=== PATIENT | male | born 1975 | race Caucasian/White ===

== ENCOUNTER 2016-10-16 16:04 | Emergency (ER) | payer BC ==
[~2016-10-16] VITALS: Ht 185.4 cm; Wt 81.6 kg
[~2016-10-16 16:04] MED LIST: AMOX-426 PO; IBUP-786 PO
--- NOTE | 2016-10-16 16:04 | NUR ---
Patient to ER bed 7 to gown for evaluation. Side rails up. Report given to David IBARRA.
[2016-10-16 16:05] VITALS: BP 120/69; PULSE 82; PULSE 83; RESP 17; TEMP 96.9; TEMP 98.3; O2SAT 96; O2SAT 97
--- NOTE | 2016-10-16 16:05 | NUR ---
Right eye irrigated at the eye station with water. Patient tolerated well.
--- NOTE | 2016-10-16 16:06 | NUR ---
Dr. Hadny at bedside to assess pt.
--- NOTE | 2016-10-16 16:06 | NUR ---
Pt here for foreign body in right eye. Redness to eye noted. Per pt, he was working on the car today, and felt something went in his eye. Pt states he feels uncomfortablenes, not pain.
[2016-10-16] MEDS ORDERED: TETRACAINE HCL 0.5% OPHTHALMIC DROPS 15 ML OP ONE (16:15)
[2016-10-16 16:55] VITALS: BP 118/70; PULSE 80; RESP 17; TEMP 97.1; O2SAT 98
--- NOTE | 2016-10-16 16:55 | NUR ---
Patient given written and verbal discharge instructions and verbalizes understanding. ER MD discussed with patient the results and treatment provided. Patient in stable condition. ID arm band removed. Rx of Gentamicin sulfate opthalmic solutiion given. Opportunity for questions provided and answered.
== END 2016-10-16 16:55 | disposition home or self-care (01) ==
LOC: SED 16:04
DX: T15.01XA Foreign body in cornea, right eye, initial encounter (principal); X58.XXXA Exposure to other specified factors, initial encounter; Y93.89 Activity, other specified; Y99.0 Civilian activity done for income or pay; Y92.89 Other specified places as the place of occurrence of the external cause
CPT/HCPCS: 99284

== ENCOUNTER 2021-03-06 20:35 | Emergency (ER) | payer BC, SELFPAY ==
[~2021-03-06] VITALS: Ht 185.4 cm; Wt 79.4 kg
[2021-03-06 20:40] VITALS: BP_SYST 103
== END 2021-03-06 22:10 | disposition left against medical advice (07) ==
LOC: SED 20:35
DX: M25.421 Effusion, right elbow (principal); Z53.21 Procedure and treatment not carried out due to patient leaving prior to being seen by health care provider

== ENCOUNTER 2021-03-28 08:39 | Inpatient (IN) | payer BC, SELFPAY ==
[~2021-03-28] VITALS: Ht 185.4 cm; Wt 81.6 kg
[2021-03-28 09:04] VITALS: BP_SYST 114
[2021-03-28] MEDS ORDERED: ACETAMINOPHEN 500 MG TABLET PO ONE (10:00)
[2021-03-28] MEDS ORDERED: NACL 0.9% 1,000 ML IV ONE (10:15)
[2021-03-28 10:39] LABS: BASOPHILS % (AUTO) 0.6 % (0.0-2.0); EOSINOPHILS % (AUTO) 0.1 % (0.0-4.0); HEMATOCRIT 38.7 % (36-54); HEMOGLOBIN 13.6 g/dL (14.0-18.0); LYMPHOCYTES # (AUTO) 0.6 K/uL (1.0-5.5); LYMPHOCYTES % (AUTO) 12.7 % (20.5-51.5); MEAN CORPUSCULAR HEMOGLOBIN 32 pg (27-31); MEAN CORPUSCULAR HGB CONC 35 % (32-36); MEAN CORPUSCULAR VOLUME 90 fL (79.0-98.0); MONOCYTES # (AUTO) 0.3 K/uL (0.0-1.0); MONOCYTES % (AUTO) 6.8 % (1.7-9.3); NEUTROPHILS # (AUTO) 3.8 K/uL (1.8-7.7); NEUTROPHILS % (AUTO) 79.8 % (40.0-70.0); PLATELET COUNT (AUTO) 96 K/uL (130-430); RED CELL DISTRIBUTION WIDTH 12.7 % (9.0-15.0); WHITE BLOOD COUNT (AUTO) 4.7 K/uL (4.8-10.8)
[2021-03-28 10:58] LABS: CALCIUM 8.3 mg/dL (8.4-11.0); CREATININE 1.13 mg/dL (0.55-1.30); POTASSIUM 4.6 mmol/L (3.5-5.1)
[2021-03-28 11:00] LABS: PROTHROMBIN TIME 10.4 SECS (9.5-12.5)
[2021-03-28 11:03] LABS: ALBUMIN 3.1 g/dL (3.4-4.8); C-REACTIVE PROTEIN QUANT 5.4 mg/dL (0-0.5); TOTAL BILIRUBIN 0.6 mg/dL (0.0-1.0)
[2021-03-28] MEDS ORDERED: CHOLECALCIFEROL (VITAMIN D3) 2,000 UNIT TABLET PO ONE (13:00)
[2021-03-28] MEDS ORDERED: MAGNESIUM OXIDE 400 MG TABLET PO ONE (13:00)
[2021-03-28] MEDS ORDERED: DECADRON 4 MG TABLET PO ONE (13:00)
[2021-03-28] MEDS ORDERED: ACETAMINOPHEN 325 MG TABLET PO PRN (14:00)
[2021-03-28] MEDS ORDERED: ONDANSETRON HCL 4 MG/2 ML VIAL IVP PRN (14:15)
[2021-03-28] MEDS ORDERED: ALBUTEROL MDI INHALATION 8 GM INH INH PRN (14:15)
[2021-03-28 14:16] VITALS: BP_SYST 114
[2021-03-28] MEDS: AZITHROMYCIN 500 MG in NS 250 ML IV SCH (14:59)
[2021-03-28 15:00] VITALS: BP_SYST 111
[2021-03-28] MEDS: NACL 0.9% 1,000 ML IV SCH (15:00)
[2021-03-28] MEDS: cefTRIAXone 1 GM in D5W 50 ML IV SCH (15:15)
[2021-03-28] MEDS: HEPARIN SODIUM,PORCINE 5,000 UNITS/ML VIAL SUBCUT SCH ×2 (15:18→22:20)
[2021-03-28] MEDS ORDERED: IVERMECTIN 3 MG TABLET PO ONE (17:45)
[2021-03-28 20:11] LABS: BILIRUBIN,URINE NEGATIVE (NEGATIVE); BLOOD, URINE NEGATIVE (NEGATIVE); CLARITY/URINE CLEAR (CLEAR); COLOR,URINE YELLOW (YELLOW); GLUCOSE,URINE NEGATIVE (NEGATIVE); KETONES,URINE TRACE (NEGATIVE); LEUKOCYTE ESTERASE ,URINE NEGATIVE (NEGATIVE); NITRITE, URINE NEGATIVE (NEGATIVE); PH,URINE 7.5 (5.0-8.0); PROTEIN URINE NEGATIVE (NEGATIVE); UROBILINOGEN,URINE 0.2 (0.2-1.0)
[2021-03-28 21:00] VITALS: BP_SYST 116
[2021-03-28] MEDS: ASCORBIC ACID 500 MG TABLET PO SCH (22:05)
[2021-03-28] MEDS: MAGNESIUM OXIDE 400 MG TABLET PO SCH (22:05)
[2021-03-28] MEDS: CHOLECALCIFEROL (VITAMIN D3) 2,000 UNIT TABLET PO SCH (22:05)
[2021-03-29] VITALS: BP_SYST 127
[2021-03-29] MEDS: NACL 0.9% 1,000 ML IV SCH ×3 (04:54→23:29)
[2021-03-29] MEDS: HEPARIN SODIUM,PORCINE 5,000 UNITS/ML VIAL SUBCUT SCH ×3 (06:16→23:32)
[2021-03-29] MEDS: BUDESONIDE 0.5 MG/2 ML AMPUL.NEB INH SCH (07:00)
[2021-03-29 07:05] LABS: BASOPHILS % (AUTO) 0.6 % (0.0-2.0); EOSINOPHILS % (AUTO) 0.1 % (0.0-4.0); HEMATOCRIT 37.8 % (36-54); HEMOGLOBIN 13.4 g/dL (14.0-18.0); LYMPHOCYTES # (AUTO) 0.8 K/uL (1.0-5.5); LYMPHOCYTES % (AUTO) 23.3 % (20.5-51.5); MEAN CORPUSCULAR HEMOGLOBIN 32 pg (27-31); MEAN CORPUSCULAR HGB CONC 36 % (32-36); MEAN CORPUSCULAR VOLUME 90 fL (79.0-98.0); MONOCYTES # (AUTO) 0.4 K/uL (0.0-1.0); MONOCYTES % (AUTO) 12.1 % (1.7-9.3); NEUTROPHILS # (AUTO) 2.3 K/uL (1.8-7.7); NEUTROPHILS % (AUTO) 63.9 % (40.0-70.0); PLATELET COUNT (AUTO) 112 K/uL (130-430); RED BLOOD CELL COUNT(AUTO) 4.22 MIL/uL (4.2-6.2); RED CELL DISTRIBUTION WIDTH 12.7 % (9.0-15.0); WHITE BLOOD COUNT (AUTO) 3.6 K/uL (4.8-10.8)
[2021-03-29 07:56] LABS: ALBUMIN 2.9 g/dL (3.4-4.8); CALCIUM 8.4 mg/dL (8.4-11.0); POTASSIUM 3.9 mmol/L (3.5-5.1); TOTAL BILIRUBIN 0.5 mg/dL (0.0-1.0)
[2021-03-29 08:00] VITALS: BP_SYST 116
[2021-03-29] MEDS: DECADRON 4 MG TABLET PO SCH (09:26)
[2021-03-29] MEDS: CHOLECALCIFEROL (VITAMIN D3) 2,000 UNIT TABLET PO SCH ×2 (09:27→23:35)
[2021-03-29] MEDS: MAGNESIUM OXIDE 400 MG TABLET PO SCH ×2 (09:27→23:36)
[2021-03-29] MEDS: ASCORBIC ACID 500 MG TABLET PO SCH ×2 (09:27→23:36)
[2021-03-29 12:05] VITALS: BP_SYST 112
[2021-03-29] MEDS ORDERED: DIPHENHYDRAMINE HCL 25 MG CAPSULE PO ONE (13:45)
[2021-03-29] MEDS: cefTRIAXone 1 GM in D5W 50 ML IV SCH (14:28)
[2021-03-29] MEDS: AZITHROMYCIN 500 MG in NS 250 ML IV SCH (14:28)
[2021-03-29 17:08] VITALS: BP_SYST 126
[2021-03-29] MEDS ORDERED: DIPHENHYDRAMINE HCL 25 MG CAPSULE PO PRN (20:00)
[2021-03-30] MEDS: HEPARIN SODIUM,PORCINE 5,000 UNITS/ML VIAL SUBCUT SCH ×3 (05:45→21:28)
[2021-03-30] MEDS: NACL 0.9% 1,000 ML IV SCH ×2 (05:47→16:19)
[2021-03-30] MEDS: BUDESONIDE 0.5 MG/2 ML AMPUL.NEB INH SCH ×2 (07:00→20:53)
[2021-03-30 08:00] VITALS: BP_SYST 113
[2021-03-30] MEDS: DECADRON 4 MG TABLET PO SCH (08:25)
[2021-03-30] MEDS: ASCORBIC ACID 500 MG TABLET PO SCH ×2 (08:25→21:25)
[2021-03-30] MEDS: CHOLECALCIFEROL (VITAMIN D3) 2,000 UNIT TABLET PO SCH ×2 (08:25→21:27)
[2021-03-30] MEDS: MAGNESIUM OXIDE 400 MG TABLET PO SCH ×2 (08:25→21:26)
[2021-03-30 12:00] VITALS: BP_SYST 114
[2021-03-30] MEDS: AZITHROMYCIN 500 MG in NS 250 ML IV SCH (13:43)
[2021-03-30 16:00] VITALS: BP_SYST 116
[2021-03-30] MEDS: cefTRIAXone 1 GM in D5W 50 ML IV SCH (16:19)
[2021-03-31 01:30] VITALS: BP_SYST 127
[2021-03-31] MEDS: NACL 0.9% 1,000 ML IV SCH ×2 (01:57→12:26)
[2021-03-31] MEDS: HEPARIN SODIUM,PORCINE 5,000 UNITS/ML VIAL SUBCUT SCH ×2 (05:27→13:47)
[2021-03-31 06:53] LABS: BASOPHILS % (AUTO) 0.6 % (0.0-2.0); EOSINOPHILS % (AUTO) 0.2 % (0.0-4.0); LYMPHOCYTES # (AUTO) 1.2 K/uL (1.0-5.5); LYMPHOCYTES % (AUTO) 23.4 % (20.5-51.5); MEAN CORPUSCULAR HEMOGLOBIN 32 pg (27-31); MEAN CORPUSCULAR HGB CONC 35 % (32-36); MEAN CORPUSCULAR VOLUME 90 fL (79.0-98.0); MONOCYTES # (AUTO) 0.7 K/uL (0.0-1.0); MONOCYTES % (AUTO) 12.8 % (1.7-9.3); NEUTROPHILS # (AUTO) 3.3 K/uL (1.8-7.7); PLATELET COUNT (AUTO) 133 K/uL (130-430); RED BLOOD CELL COUNT(AUTO) 4.13 MIL/uL (4.2-6.2); RED CELL DISTRIBUTION WIDTH 12.5 % (9.0-15.0); WHITE BLOOD COUNT (AUTO) 5.3 K/uL (4.8-10.8)
[2021-03-31] MEDS: DECADRON 4 MG TABLET PO SCH (08:08)
[2021-03-31] MEDS: ASCORBIC ACID 500 MG TABLET PO SCH (08:09)
[2021-03-31] MEDS: CHOLECALCIFEROL (VITAMIN D3) 2,000 UNIT TABLET PO SCH (08:09)
[2021-03-31] MEDS: MAGNESIUM OXIDE 400 MG TABLET PO SCH (08:09)
[2021-03-31 08:22] LABS: ALBUMIN 2.7 g/dL (3.4-4.8); C-REACTIVE PROTEIN QUANT 0.9 mg/dL (0-0.5); CALCIUM 8.1 mg/dL (8.4-11.0); CREATININE 0.95 mg/dL (0.55-1.30); TOTAL BILIRUBIN 0.6 mg/dL (0.0-1.0)
[2021-03-31 08:24] VITALS: BP_SYST 109
[2021-03-31] MEDS: BUDESONIDE 0.5 MG/2 ML AMPUL.NEB INH SCH (09:28)
[2021-03-31 12:14] VITALS: BP_SYST 117
[2021-03-31] MEDS: AZITHROMYCIN 500 MG in NS 250 ML IV SCH (13:46)
[2021-03-31] MEDS: cefTRIAXone 1 GM in D5W 50 ML IV SCH (15:11)
[2021-03-31 15:16] VITALS: BP_SYST 115
[2021-03-31] MEDS ORDERED: APIX2.5T PO (15:25)
[2021-03-31] MEDS ORDERED: ASCO500T20 PO (15:25)
[2021-03-31] MEDS ORDERED: VIT D3 PO (15:26)
[2021-03-31] MEDS ORDERED: MAGN400T10 PO (15:26)
[2021-03-31] MEDS ORDERED: ZINC SULFATE PO (15:27)
[2021-03-31] MEDS ORDERED: ZIT250 PO (15:38)
[2021-03-31] MEDS ORDERED: ALBMDI INH (15:39)
[2021-03-31] MEDS ORDERED: DEC1 PO (15:39)
[2021-03-31 15:55] VITALS: BP_SYST 115
== END 2021-03-31 17:00 | disposition home or self-care (01) | DRG 177 ==
LOC: SED 08:39 → STU 11:02
PROVIDERS: ADMIT Internal Medicine; ATTEND Internal Medicine
DX: U07.1 COVID-19 (principal); J96.01 Acute respiratory failure with hypoxia; J12.82 Pneumonia due to coronavirus disease 2019; E44.1 Mild protein-calorie malnutrition; E86.0 Dehydration; Z68.23 Body mass index [BMI] 23.0-23.9, adult; Z79.899 Other long term (current) drug therapy
CPT/HCPCS: 36415; 36600; 71045; 80053; 81003; 82550; 82728; 82803-TC; 83605; 83615; 83880; 84484; 85025; 85379; 85384; 85610-TC; 85730-TC; 86140; 86886; 86900; 86901; 87040-TC; 87070-TC; 87086; 87205-TC; 93005; 94640; 96360; 99285; G0378; J0456; J0696; J1644; J7050; J7060; J7626; J8540; Q0163; U0003

== ENCOUNTER 2021-05-06 08:29 | Emergency (ER) | payer BC, SELFPAY ==
[~2021-05-06] VITALS: Ht 185.4 cm; Wt 81.6 kg
[~2021-05-06 08:29] MED LIST changes: +ALBMDI INH; -AMOX-426 PO; +APIX2.5T PO; +ASCO500T20 PO; +DEC1 PO; -IBUP-786 PO; +MAGN400T10 PO; +VIT D3 PO; +ZINC SULFATE PO; +ZIT250 PO
[2021-05-06 08:38] VITALS: BP_SYST 114
--- NOTE | 2021-05-06 08:41 | NUR ---
PT PLACED IN ROOM 4, TRIAGE DONE AT BEDSIDE. AMBULATORY-STEADY GAIT
--- NOTE | 2021-05-06 08:56 | NUR ---
PT COMES TO ER WITH C/O CONSTANT DIARRHEA X 2 WEEKS, APPROX 5-10 TIMES PER DAY, DENIES VOMITTING/NAUSEA. DENIES ABDOMINAL PAIN. DENIES FEVERS/CHILLS. PT REPORTS EATING/DRINKING WELL. REPORTS HE WAS RECENTLY ADMITTED HERE AT [facility] FOR COVID PNEUMONIA AND DISCHARGED, SINCE THEN HAS SEEN PMD AND WAS GIVEN LOMOTIL WITH LITTLE TO NO RELIEF. SKIN W/D/I, IN NAD. ABD FLAT, SOFT, NT TO PALPATION.
--- NOTE | 2021-05-06 08:58 | NUR ---
DR GIVENS IN ROOM FOR EXAM
[2021-05-06 09:12] LABS: BASOPHILS % (AUTO) 1.1 % (0.0-2.0); EOSINOPHILS # (AUTO) 0.1 K/uL (0.0-0.4); EOSINOPHILS % (AUTO) 1.7 % (0.0-4.0); HEMATOCRIT 40.2 % (36-54); LYMPHOCYTES # (AUTO) 0.9 K/uL (1.0-5.5); LYMPHOCYTES % (AUTO) 22.8 % (20.5-51.5); MEAN CORPUSCULAR HEMOGLOBIN 32 pg (27-31); MEAN CORPUSCULAR HGB CONC 35 % (32-36); MEAN CORPUSCULAR VOLUME 91 fL (79.0-98.0); MONOCYTES # (AUTO) 0.5 K/uL (0.0-1.0); MONOCYTES % (AUTO) 11.5 % (1.7-9.3); NEUTROPHILS # (AUTO) 2.6 K/uL (1.8-7.7); NEUTROPHILS % (AUTO) 62.9 % (40.0-70.0); PLATELET COUNT (AUTO) 153 K/uL (130-430); RED CELL DISTRIBUTION WIDTH 13.6 % (9.0-15.0); WHITE BLOOD COUNT (AUTO) 4.1 K/uL (4.8-10.8)
[2021-05-06 09:23] LABS: CALCIUM 8.4 mg/dL (8.4-11.0); CREATININE 1.09 mg/dL (0.55-1.30); POTASSIUM 4.1 mmol/L (3.5-5.1)
[2021-05-06 09:27] LABS: ALBUMIN 3.3 g/dL (3.4-4.8); C-REACTIVE PROTEIN QUANT 1.1 mg/dL (0-0.5); TOTAL BILIRUBIN 0.8 mg/dL (0.0-1.0)
[2021-05-06 09:38] LABS: INR 0.9 (0.80-1.20); PROTHROMBIN TIME 9.6 SECS (9.5-12.5)
--- NOTE | 2021-05-06 09:38 | NUR ---
PT STILLUNABLE TO PROVIDE URINE, WATER GIVEN.
[2021-05-06 11:00] LABS: BILIRUBIN,URINE NEGATIVE (NEGATIVE); BLOOD, URINE NEGATIVE (NEGATIVE); CLARITY/URINE CLEAR (CLEAR); COLOR,URINE YELLOW (YELLOW); GLUCOSE,URINE NEGATIVE (NEGATIVE); KETONES,URINE NEGATIVE (NEGATIVE); LEUKOCYTE ESTERASE ,URINE NEGATIVE (NEGATIVE); NITRITE, URINE NEGATIVE (NEGATIVE); PROTEIN URINE NEGATIVE (NEGATIVE); UROBILINOGEN,URINE 0.2 (0.2-1.0)
--- NOTE | 2021-05-06 11:07 | NUR ---
DC WITH [facility], PT VERBALIZED UNDERSTANDING TO F/U WITH HIS PCP AND OR RETURN TO THE ER IF SYMPTOMS PERSIST OR WORSEN. VSS.
[2021-05-06 11:08] VITALS: BP_SYST 144
== END 2021-05-06 11:07 | disposition home or self-care (01) ==
LOC: SED 08:29
DX: R19.7 Diarrhea, unspecified (principal); Z79.899 Other long term (current) drug therapy
CPT/HCPCS: 36415; 76376; 80053; 81003; 82150; 83605; 83690; 85025; 85610-TC; 85730-TC; 86140; 99284

== ENCOUNTER 2023-09-21 07:43 | Emergency (ER) | payer BC ==
[~2023-09-21] VITALS: Ht 185.4 cm; Wt 83.0 kg
[2023-09-21 07:45] VITALS: BP_SYST 103; PULSE 82; RESP 18; TEMP 97.6; O2SAT 97
[2023-09-21] MEDS ORDERED: AMOX500C2 PO (08:08)
[2023-09-21] MEDS ORDERED: PRED20TA PO (08:08)
[2023-09-21] MEDS ORDERED: IBUP-1971 PO (08:08)
== END 2023-09-21 08:33 | disposition home or self-care (01) ==
LOC: SED 07:43
DX: J02.9 Acute pharyngitis, unspecified (principal); Z79.899 Other long term (current) drug therapy
CPT/HCPCS: 99283